=== PATIENT | male | born 1975 ===

== ENCOUNTER → 2018-12-05 22:03 | Outpatient (REF) | payer OTHER, SELFPAY ==
[2018-12-09 09:52] LABS: Syphilis AB Cascading Reflex NEGATIVE (Negative)
== END ==
LOC: LAB 22:03
PROVIDERS: Visit Provider Family Medicine
DX: Z11.1 Encounter for screening for respiratory tuberculosis (principal)
CPT/HCPCS: 36415; 86780; 87591